=== PATIENT | male | born 1980 | race Caucasian/White ===

== ENCOUNTER → 2016-10-17 | Outpatient (CLI) | payer OTHER ==
[~2016-10-17] MED LIST: ATOR10TA PO; HYDR-3702 PO; PANT40TA3 PO; PRM25T PO
--- NOTE | 2016-10-17 13:48 | Diagnostic Imaging Report ---
PROCEDURE: CT abdomen without contrast. TECHNIQUE: Multiple contiguous axial images were obtained through the abdomen without the use of intravenous contrast. INDICATION: Right upper quadrant pain, history of cholecystectomy. FINDINGS: There is no subhepatic fluid collection. There is no pathological biliary dilatation. There is no free air. The spleen is unremarkable. The kidneys are unobstructed and show no opaque stone. The aorta is nonaneurysmal. The unopacified pancreas is unremarkable. There is no adrenal mass. There is no ascites, abscess, hematoma, or other fluid collection. The appendix is visualized and is normal. There is no free air. The lung bases and the osseous structures appear nonacute. IMPRESSION: Unremarkable abdominal CT with no biliary dilatation, perihepatic fluid collection, inflammatory process, or acute finding. Dictated by: Dictated on workstation # [id number]
== END ==
LOC: RAD 12:58
PROVIDERS: ATTEND Family Medicine
DX: R10.84 Generalized abdominal pain (principal); R10.11 Right upper quadrant pain
CPT/HCPCS: 74150

== ENCOUNTER → 2016-10-23 | Outpatient (CLI) | payer OTHER ==
[2016-10-23 13:54] LABS: BASOPHILS % (AUTO) 1 % (0-2); EOSINOPHILS # (AUTO) 0.3 10^3uL; EOSINOPHILS % (AUTO) 4 % (0-4); LYMPHOCYTES # (AUTO) 1.4 X10^3; MEAN CORPUSCULAR HGB CONC 35.3 g/dL (31.0-37.0); MEAN PLATELET VOLUME 11.3 FL (6.0-9.5); MONOCYTES # (AUTO) 0.7 X10^3; MONOCYTES % (AUTO) 10 % (3-11); NEUTROPHILS # (AUTO) 4.5 X10^3; NEUTROPHILS % (AUTO) 65 % (51-67); PLATELET COUNT 282 10^3uL (150-450); WHITE BLOOD COUNT 7.02 10^3uL (4.0-11.0)
[2016-10-23 14:20] LABS: MEAN CORPUSCULAR VOLUME 79 FL (80-100)
[2016-10-23 14:31] LABS: ALBUMIN 4.5 g/dL (3.4-5.0); ANION GAP 17.3 MEQ/L (3-15); TOTAL PROTEIN 7.7 g/dL (6.4-8.5)
== END ==
LOC: LAB 13:43
PROVIDERS: ATTEND Family Medicine
DX: R10.11 Right upper quadrant pain (principal); R94.5 Abnormal results of liver function studies
CPT/HCPCS: 36415; 80053; 82150; 82977; 83690; 85025